=== PATIENT | female | born 1945 | race Caucasian/White ===

== ENCOUNTER → 2018-08-31 | Outpatient (CLI) | payer OTHER ==
[~2018-08-31] MED LIST: ACET-458 PO; ASPI-515 PO; ATEN50TA41 PO; BUTA1CAP57 PO; DILT240C9 PO; DIPH25CA61 PO; GABA600T7 PO; HYDR-3307 PO; LOSA100T14 PO; OMEP-110 PO; ONDA4TAB10 PO; PANT40TA5 PO; SERT100T32 PO; SIME125C PO; TYLENOL ARTHRITIS
== END | disposition home or self-care (01) ==
LOC: RAD 07:22
PROVIDERS: ATTEND Internal Medicine Gastroenterology
DX: K44.9 Diaphragmatic hernia without obstruction or gangrene (principal); K21.9 Gastro-esophageal reflux disease without esophagitis
CPT/HCPCS: 74247

== ENCOUNTER → 2018-10-27 | Outpatient (CLI) | payer MEDICARE ==
[~2018-10-27] MED LIST changes: +FERR-46 PO; +GABA300C10 PO
[2018-10-27 09:14] LABS: INTERNATIONAL NORMALIZED RATIO 0.99 (0.93-1.1); PROTHROMBIN TIME 10.4 Seconds (9.6-11.5)
== END | disposition home or self-care (01) ==
LOC: STAR 07:54
PROVIDERS: ATTEND Thoracic Surgery (Cardiothoracic Vascular Surgery)
DX: Z01.818 Encounter for other preprocedural examination (principal); K44.9 Diaphragmatic hernia without obstruction or gangrene
CPT/HCPCS: 36415; 85610; 85730; 93005

== ENCOUNTER 2018-11-03 06:48 | Observation (INO) | payer MEDICARE, OTHER ==
[~2018-11-03] VITALS: Ht 160 cm; Wt 83.8 kg
[~2018-11-03 06:48] MED LIST changes: +BUPIVACAINE/EPI 0.5% 1:200K ONE
[2018-11-03] MEDS ORDERED: LACTATED RINGERS 1,000 ML IV SCH (08:03)
[2018-11-03 08:04] VITALS: BP 176/101
[2018-11-03] MEDS ORDERED: LIDOCAINE-MPF 1%, 2ML INFIL ONE (08:30)
[2018-11-03] MEDS ORDERED: LISI40TA PO (08:40)
[2018-11-03] MEDS ORDERED: DIPH25CA61 PO (08:42)
[2018-11-03] MEDS ORDERED: ONDA4TAB13 SL (08:45)
[2018-11-03] MEDS ORDERED: ALBU18HF PO (08:45)
[2018-11-03] MEDS ORDERED: DEXAMETHASONE 4 MG/ML, 1ML ONE (09:05)
[2018-11-03] MEDS ORDERED: LIDOCAINE-MPF 2% ,5ML ONE (09:05)
[2018-11-03] MEDS ORDERED: ROCURONIUM 10MG/ML,5ML ONE (09:05)
[2018-11-03] MEDS ORDERED: PROPOFOL 10 MG/ML, 20ML ONE (09:05)
[2018-11-03] MEDS ORDERED: GLYCOPYRROLATE 0.2MG/1ML, 5ML ONE (09:05)
[2018-11-03] MEDS ORDERED: FENTANYL PF 250 MCG/5ML ONE (09:06)
[2018-11-03] MEDS ORDERED: MIDAZOLAM 1 MG/ML, 5ML ONE (09:06)
[2018-11-03] MEDS ORDERED: LIDOCAINE 2%, 6 ML JEL.PF.APP MM ONE (10:47)
[2018-11-03] MEDS ORDERED: ONDANSETRON 2MG/ML, 2ML IVPush PRN ×2 (11:00→11:30)
[2018-11-03] MEDS ORDERED: OXYcodone 5 MG/5 ML ORAL.SOL UDC PO PRN (11:00)
[2018-11-03] MEDS ORDERED: KETOROLAC 30 MG/1 ML IV PRN (11:00)
[2018-11-03] MEDS ORDERED: MIDAZOLAM 1 MG/ML, 2ML IV PRN (11:00)
[2018-11-03] MEDS ORDERED: LABETALOL 5MG/ML, 20ML IV PRN (11:00)
[2018-11-03] MEDS ORDERED: METOCLOPRAMIDE 5 MG/ML, 2ML IV PRN (11:00)
[2018-11-03] MEDS ORDERED: HYDROcodone/APAP 7.5-325MG/15ML UDC PO PRN (11:00)
[2018-11-03] MEDS ORDERED: MEPERIDINE/PF 25MG/0.5ML IVPush PRN (11:00)
[2018-11-03] MEDS: LACTATED RINGERS 1,000 ML IV SCH ×2 (11:21→20:49)
[2018-11-03] MEDS ORDERED: DIPHENHYDRAMINE 50 MG/ML, 1ML IV PRN (11:30)
[2018-11-03] MEDS ORDERED: PROMETHAZINE 12.5 MG SUPP PR PRN (11:30)
[2018-11-03] MEDS ORDERED: ACETAMINOPHEN 650 MG/20.3 ML UDC PO PRN (11:30)
[2018-11-03] MEDS ORDERED: LORazepam 2 MG/ML, 1ML IV PRN (11:30)
[2018-11-03] MEDS ORDERED: ENALAPRILAT 1.25 MG/ML, 2ML IV PRN (11:30)
[2018-11-03] MEDS ORDERED: PROMETHAZINE 25 MG/ML, 1ML IM PRN (11:30)
[2018-11-03] MEDS ORDERED: hydrALAzine 20 MG/ML, 1ML IV PRN (11:30)
[2018-11-03] MEDS ORDERED: FENTANYL PF 100 MCG/2ML ONE (11:40)
[2018-11-03] MEDS ORDERED: OXYcodone 5 MG/5 ML ORAL.SOL UDC ONE (11:40)
[2018-11-03] MEDS: FENTANYL PF 100 MCG/2ML IV PRN ×3 (11:42→12:01)
[2018-11-03] MEDS ORDERED: PROMETHAZINE 25 MG/ML, 1ML ONE (11:43)
[2018-11-03] MEDS: HYDROmorphone 1 MG/ML, 1ML INJ IV PRN ×2 (12:03→12:14)
[2018-11-03] MEDS ORDERED: HYDROmorphone 2 MG/ML, 1ML ONE (12:07)
[2018-11-03] MEDS ORDERED: hydrALAzine 20 MG/ML, 1ML ONE (12:30)
[2018-11-03 13:05] VITALS: BP 111/69
[2018-11-03] MEDS ORDERED: ALBUTEROL SULFATE 2.5 MG/3 ML NPPB PRN (13:30)
[2018-11-03] MEDS: FAMOTIDINE 20 MG/2 ML IV SCH ×2 (13:32→23:56)
[2018-11-03] MEDS: morphine SULFATE 10 MG/ML, 1ML IV PRN ×2 (13:32→15:19)
[2018-11-03] MEDS: GABAPENTIN 300 MG CAPSULE PO SCH ×2 (16:07→20:47)
[2018-11-03] MEDS: HYDROcodone/APAP 7.5-325MG/15ML UDC PO PRN (18:40)
[2018-11-03 20:16] VITALS: BP 134/84
[2018-11-04] MEDS: HYDROcodone/APAP 7.5-325MG/15ML UDC PO PRN ×2 (00:01→04:27)
[2018-11-04 00:49] VITALS: BP 147/87
[2018-11-04 03:34] VITALS: BP 164/90
[2018-11-04] MEDS: morphine SULFATE 10 MG/ML, 1ML IV PRN (04:27)
[2018-11-04] MEDS: LACTATED RINGERS 1,000 ML IV SCH (05:51)
[2018-11-04 07:45] VITALS: BP 143/86
[2018-11-04] MEDS ORDERED: ENOXAPARIN 40 MG/0.4 ML SQ SCH (09:00)
[2018-11-04] MEDS ORDERED: LISINOPRIL 40 MG TABLET PO SCH (09:00)
[2018-11-04] MEDS ORDERED: DILTIAZEM 240 MG CAP.ER.24H PO SCH (09:00)
[2018-11-04] MEDS ORDERED: ATENOLOL 50 MG TABLET PO SCH (09:00)
[2018-11-04] MEDS: GABAPENTIN 300 MG CAPSULE PO SCH (09:00)
== END 2018-11-04 10:20 | disposition home or self-care (01) ==
LOC: OR 06:48 → ORIP 11:21 → 4NOR 13:03 → DCLOUNGE 11-04 10:02
PROVIDERS: ADMIT Thoracic Surgery (Cardiothoracic Vascular Surgery); ATTEND Thoracic Surgery (Cardiothoracic Vascular Surgery)
DX: K44.0 Diaphragmatic hernia with obstruction, without gangrene (principal); K21.9 Gastro-esophageal reflux disease without esophagitis; R14.0 Abdominal distension (gaseous); J44.9 Chronic obstructive pulmonary disease, unspecified; I10 Essential (primary) hypertension; E66.9 Obesity, unspecified; D50.9 Iron deficiency anemia, unspecified; M85.80 Other specified disorders of bone density and structure, unspecified site; Z79.899 Other long term (current) drug therapy
CPT/HCPCS: 43282; 96374; 96375; 96376; G0378; J0360; J1100; J1170; J2250; J2270; J2704; J3010; J3490; J7120; Q4116

== ENCOUNTER 2019-05-05 16:08 | Inpatient (IN) | payer MEDICARE ==
[~2019-05-05] VITALS: Ht 160 cm; Wt 74.7 kg
[~2019-05-05 16:08] MED LIST changes: +ALBU18HF PO; -BUPIVACAINE/EPI 0.5% 1:200K ONE; -HYDR-3307 PO; +HYDR-36 PO; +LISI40TA PO; +ONDA4TAB13 SL
--- NOTE | 2019-05-05 16:17 | NUR ---
BIB EMS FOR ABDOMINAL PAIN AND DIARRHEA FOR 2 WEEKS. PT STATES ABDOMINAL PAIN STARTED TODAY, FEELS LIKE A MUSCLE IS PULLED. ACTIVE BOWEL SOUNDS, NO DISTENTION, LOWER AB PAIN TO PALPITATION. NAUSEA PRESENT. HX OF ABDOMINAL SURGERY FOR TWISTED STOMACH. HX OF AFIB. PT STATES SHE HAS DIARRHEA FREQUENTLY. DENIES ABX USE.
[2019-05-05] MEDS ORDERED: APIX5TAB PO (16:22)
[2019-05-05] MEDS ORDERED: HYDROmorphone 1 MG/ML, 1ML VIAL ONE ×2 (16:25→17:03)
[2019-05-05] MEDS ORDERED: ONDANSETRON 2MG/ML, 2ML ONE ×2 (16:25→20:41)
[2019-05-05] MEDS: HYDROmorphone 2 MG/ML, 1ML IVPush PRN ×2 (16:27→17:05)
[2019-05-05] MEDS ORDERED: SODIUM CHLORIDE 0.9% 1,000ML IVBOLUS ONE (16:30)
[2019-05-05] MEDS ORDERED: SODIUM CHLORIDE FLUSH 10ML SYR IVF ONE (16:30)
[2019-05-05] MEDS ORDERED: ONDANSETRON 2MG/ML, 2ML IVPush ONE (16:30)
--- NOTE | 2019-05-05 16:30 | NUR ---
MEDICATED FOR PAIN PER ORDERS. LAB AT BEDSIDE.
[2019-05-05 16:49] LABS: BASOPHILS # (AUTO) 0.01 x10^3/uL (0-0.1); BASOPHILS % (AUTO) 0 % (0-1); EOSINOPHILS # (AUTO) 0.18 x10^3/uL (0-0.4); EOSINOPHILS % (AUTO) 1 % (1-7); LYMPHOCYTES # (AUTO) 1.28 x10^3/uL (1-3.4); LYMPHOCYTES % (AUTO) 10 % (22-44); MD NO; MEAN CORPUSCULAR HEMOGLOBIN 34.2 pg (27.0-34.8); MEAN CORPUSCULAR HGB CONC 33.5 g/dL (32.4-35.8); MEAN CORPUSCULAR VOLUME 102.2 fL (80-100); MEAN PLATELET VOLUME 8.4 fL (7.4-10.4); MONOCYTES # (AUTO) 0.73 x10^3/uL (0.2-0.8); MONOCYTES % (AUTO) 6 % (2-9); NEUTROPHILS # (AUTO) 11.24 x10^3/uL (1.8-6.8); NEUTROPHILS % (AUTO) 84 % (42-75); PLATELET COUNT 244 x10^3/uL (130-400); RED CELL DISTRIBUTION WIDTH 14.4 % (9.6-15.2)
--- NOTE | 2019-05-05 16:56 | NUR ---
UA SAMPLE OBTAINED. SENT TO LAB. PT STILL HAS CO OF PAIN
[2019-05-05 16:57] LABS: ALANINE AMINOTRANSFERASE 133 U/L (12-78); ALBUMIN 3.6 g/dL (3.4-5.0); ANION GAP 6 mmol/L (5-15); CALCIUM 9.3 mg/dL (8.5-10.1); CHLORIDE 113 mmol/L (98-107)
[2019-05-05 17:00] LABS: ALKALINE PHOSPHATASE 274 U/L (45-117); BILIRUBIN,TOTAL 0.9 mg/dL (0.2-1.0)
[2019-05-05 17:04] LABS: INTERNATIONAL NORMALIZED RATIO 1.03 (0.93-1.1); PROTHROMBIN TIME 10.8 Seconds (9.6-11.5)
--- NOTE | 2019-05-05 17:05 | NUR ---
MEDICATED FOR PAIN. PT OFF TO CT
[2019-05-05 17:14] LABS: MICROSCOPIC NOT IND
[2019-05-05 17:20] LABS: CULTURE INDICATED? NO
[2019-05-05] MEDS ORDERED: OMNIPAQUE 350 MG/ML, 100ML BOTTLE ONE (17:28)
--- NOTE | 2019-05-05 17:35 | NUR ---
DISCUSSED POC Ravi TAYLOR. WILL PLACE NG TUBE. TO BE ADMITTED.
--- NOTE | 2019-05-05 18:24 | NUR ---
PT DAUGHTER GREG, [phone], CALLED FOR INFO.
--- NOTE | 2019-05-05 18:24 | NUR ---
NG TUBE PLACE. PT TOLERATED PROCEDURE. AUSCULATED, CHECKED BY CXR. PT STATES SHE IS FEELING SLIGHTLY BETTER. MD AT BEDSIDE.
--- NOTE | 2019-05-05 19:14 | NUR ---
REPORT TO OR. PT RTG. CONSENT SIGNED. PT HAS NO FURTHER QUESTIONS.
[2019-05-05] MEDS ORDERED: FENTANYL PF 250 MCG/5ML ONE (19:53)
[2019-05-05] MEDS ORDERED: MIDAZOLAM 1 MG/ML, 2ML ONE (19:53)
[2019-05-05] MEDS ORDERED: PHENYLEPHRINE 10 MG/ML ONE (19:57)
[2019-05-05] MEDS ORDERED: LIDODERM 5% PATCH TD PRN (20:00)
[2019-05-05] MEDS ORDERED: PHARMACY MAY ADJ FOR RENAL FX MC PRN (20:00)
[2019-05-05] MEDS ORDERED: BISACODYL 10 MG SUPP PR PRN (20:00)
[2019-05-05] MEDS ORDERED: SODIUM CHLORIDE 0.9% 1,000 ML IV SCH (20:00)
[2019-05-05] MEDS ORDERED: ENALAPRILAT 1.25 MG/ML, 2ML IVPush PRN (20:00)
[2019-05-05] MEDS ORDERED: AMPICILLIN/SULBACTAM 3 GM in SODIUM CHLORIDE 0.9% 100 ML IV SCH (20:30)
[2019-05-05] MEDS ORDERED: METRONIDAZOLE PMX 500MG/100ML 100 ML IV SCH (20:30)
[2019-05-05] MEDS ORDERED: EPHEDRINE 50 MG/ML, 1ML ONE ×2 (20:41)
[2019-05-05] MEDS ORDERED: SUCCINYLCHOLINE 20 MG/ML, 10ML ONE (20:41)
[2019-05-05] MEDS ORDERED: NEOSTIGMINE 1 MG/ML, 10ML ONE (20:41)
[2019-05-05] MEDS ORDERED: DEXAMETHASONE 4 MG/ML, 1ML ONE (20:41)
[2019-05-05] MEDS ORDERED: SUGAMMADEX 200 MG/2 ML IVPush ONE (20:41)
[2019-05-05] MEDS ORDERED: CEFAZOLIN 1,000 MG ONE (20:41)
[2019-05-05] MEDS ORDERED: ROCURONIUM 10MG/ML,5ML ONE (20:41)
[2019-05-05] MEDS ORDERED: PROPOFOL 10 MG/ML, 20ML ONE (20:41)
[2019-05-05] MEDS ORDERED: GLYCOPYRROLATE 0.2MG/1ML, 5ML ONE (20:41)
[2019-05-05] MEDS ORDERED: PROPOFOL 50 ML ONE (20:44)
[2019-05-05] MEDS ORDERED: PROPOFOL 100 ML IV ONE (22:43)
[2019-05-05] MEDS ORDERED: NOREPINEPHRINE 4 MG in SODIUM CHLORIDE 0.9% 246 ML IV PRN ×2 (22:53→23:30)
[2019-05-05] MEDS ORDERED: PROPOFOL 100 ML IV PRN (22:53)
[2019-05-05] MEDS ORDERED: VASOPRESSIN 100 UNIT in SODIUM CHLORIDE 0.9% 495 ML IV PRN ×2 (22:53→23:30)
[2019-05-05] MEDS ORDERED: SODIUM BICARB 8.4%, 50ML SYRINGE IVPush STA (22:56)
[2019-05-05] MEDS: ALBUTEROL/IPRATROPIUM 2.5MG/0.5MG, 3 ML INLINE SCH (23:00)
[2019-05-05] MEDS ORDERED: PHARMACY MAY ADJ FOR RENAL FX MC SCH (23:00)
[2019-05-05] MEDS ORDERED: FENTANYL PF 100 MCG/2ML IVPush PRN (23:00)
[2019-05-05] MEDS ORDERED: LIDOCAINE-MPF 1%, 2ML ENDO PRN (23:00)
[2019-05-05] MEDS ORDERED: SODIUM BICARBONATE 1 MEQ/ML, 50ML VIAL ONE (23:28)
[2019-05-05] MEDS: PIPERACILLIN/TAZO/PMX 3.375GM 50 ML IV SCH (23:37)
[2019-05-06 00:49] LABS: INTERNATIONAL NORMALIZED RATIO 1.49 (0.93-1.1); PROTHROMBIN TIME 15.4 Seconds (9.6-11.5)
[2019-05-06 01:19] LABS: TROPONIN I < 0.015 ng/mL (0.000-0.045)
[2019-05-06] MEDS: ALBUTEROL/IPRATROPIUM 2.5MG/0.5MG, 3 ML INLINE SCH ×2 (02:40→06:36)
[2019-05-06 04:30] LABS: BASOPHILS # (AUTO) 0.01 x10^3/uL (0-0.1); BASOPHILS % (AUTO) 0 % (0-1); EOSINOPHILS % (AUTO) 0 % (1-7); LYMPHOCYTES # (AUTO) 0.71 x10^3/uL (1-3.4); LYMPHOCYTES % (AUTO) 6 % (22-44); MD NO; MEAN CORPUSCULAR HGB CONC 33.2 g/dL (32.4-35.8); MEAN CORPUSCULAR VOLUME 102.4 fL (80-100); MEAN PLATELET VOLUME 8.3 fL (7.4-10.4); MONOCYTES # (AUTO) 0.43 x10^3/uL (0.2-0.8); MONOCYTES % (AUTO) 3 % (2-9); NEUTROPHILS # (AUTO) 11.61 x10^3/uL (1.8-6.8); NEUTROPHILS % (AUTO) 91 % (42-75); PLATELET COUNT 237 x10^3/uL (130-400); RED CELL DISTRIBUTION WIDTH 14.3 % (9.6-15.2)
[2019-05-06 04:44] LABS: ALANINE AMINOTRANSFERASE 183 U/L (12-78); ALBUMIN 2.6 g/dL (3.4-5.0); ANION GAP 7 mmol/L (5-15); CALCIUM 8.2 mg/dL (8.5-10.1); CHLORIDE 113 mmol/L (98-107); CREATININE 1.22 mg/dL (0.55-1.02)
[2019-05-06 04:49] LABS: ALKALINE PHOSPHATASE 229 U/L (45-117); TOTAL PROTEIN 6.2 g/dL (6.4-8.2); TROPONIN I < 0.015 ng/mL (0.000-0.045)
[2019-05-06] MEDS: PIPERACILLIN/TAZO/PMX 3.375GM 50 ML IV SCH (06:02)
[2019-05-06] MEDS ORDERED: MAGNESIUM SULFATE PMX 4GM/100M 100 ML IVPB ONE (07:30)
[2019-05-06] MEDS: PANTOPRAZOLE 40 MG IV IV SCH (08:21)
[2019-05-06] MEDS ORDERED: ALBUTEROL/IPRATROPIUM 2.5MG/0.5MG, 3 ML NPPB SCH (08:30)
[2019-05-06] MEDS ORDERED: ALBUTEROL SULFATE 2.5 MG/3 ML NPPB PRN (08:30)
[2019-05-06] MEDS: ALBUTEROL/IPRATROPIUM 2.5MG/0.5MG, 3 ML NPPB SCH ×5 (09:00→19:22)
[2019-05-06] MEDS: ATENOLOL 50 MG TABLET PO SCH (09:10)
[2019-05-06] MEDS: SERTRALINE 100MG TABLET PO SCH (09:10)
[2019-05-06] MEDS: DILTIAZEM 240 MG CAP.ER.24H PO SCH (09:11)
[2019-05-06] MEDS: KETOROLAC 30 MG/1 ML IVPush SCH ×3 (11:22→23:17)
[2019-05-06] MEDS: SODIUM CHLORIDE 0.9% 1,000 ML IV SCH (11:26)
[2019-05-06 14:03] VITALS: BP 100/68
[2019-05-06] MEDS: GABAPENTIN 300 MG CAPSULE PO SCH ×2 (15:11→20:23)
[2019-05-06 19:49] VITALS: BP 130/87
[2019-05-06] MEDS: APIXABAN 5 MG TABLET PO SCH (20:23)
[2019-05-06] MEDS: TEMAZEPAM 15 MG CAPSULE PO PRN (20:23)
[2019-05-06] MEDS: HYDROmorphone 2 MG/ML, 1ML IVPush PRN ×2 (20:25→23:30)
[2019-05-06 23:23] VITALS: BP 123/77
[2019-05-07] MEDS: SODIUM CHLORIDE 0.9% 1,000 ML IV SCH (00:52)
[2019-05-07] MEDS: HYDROmorphone 2 MG/ML, 1ML IVPush PRN ×4 (02:46→12:19)
[2019-05-07 03:08] VITALS: BP 122/63
[2019-05-07] MEDS: KETOROLAC 30 MG/1 ML IVPush SCH ×4 (04:42→23:53)
[2019-05-07 05:47] LABS: ALBUMIN 2.2 g/dL (3.4-5.0); ANION GAP 4 mmol/L (5-15); CALCIUM 7.9 mg/dL (8.5-10.1); CHLORIDE 117 mmol/L (98-107)
[2019-05-07 05:51] LABS: ALANINE AMINOTRANSFERASE 95 U/L (12-78); ALKALINE PHOSPHATASE 142 U/L (45-117); BILIRUBIN,TOTAL 0.5 mg/dL (0.2-1.0); CREATININE 0.83 mg/dL (0.55-1.02); TOTAL PROTEIN 5.8 g/dL (6.4-8.2)
[2019-05-07 06:30] LABS: BASOPHILS % (AUTO) 0 % (0-1); EOSINOPHILS # (AUTO) 0.02 x10^3/uL (0-0.4); EOSINOPHILS % (AUTO) 0 % (1-7); LYMPHOCYTES # (AUTO) 1.14 x10^3/uL (1-3.4); LYMPHOCYTES % (AUTO) 8 % (22-44); MD NO; MEAN CORPUSCULAR HGB CONC 32.8 g/dL (32.4-35.8); MEAN CORPUSCULAR VOLUME 103.6 fL (80-100); MEAN PLATELET VOLUME 8.1 fL (7.4-10.4); MONOCYTES # (AUTO) 0.71 x10^3/uL (0.2-0.8); MONOCYTES % (AUTO) 5 % (2-9); NEUTROPHILS % (AUTO) 86 % (42-75); PLATELET COUNT 205 x10^3/uL (130-400); RED BLOOD COUNT 3.31 x10^6/uL (3.82-5.3); RED CELL DISTRIBUTION WIDTH 14.7 % (9.6-15.2)
[2019-05-07 06:54] VITALS: BP 109/74
[2019-05-07] MEDS: ALBUTEROL/IPRATROPIUM 2.5MG/0.5MG, 3 ML NPPB SCH (07:20)
[2019-05-07] MEDS: GABAPENTIN 300 MG CAPSULE PO SCH ×3 (09:00→20:03)
[2019-05-07] MEDS: PANTOPRAZOLE 40 MG IV IV SCH (09:04)
[2019-05-07] MEDS: DILTIAZEM 240 MG CAP.ER.24H PO SCH (09:05)
[2019-05-07] MEDS: ATENOLOL 50 MG TABLET PO SCH (09:06)
[2019-05-07] MEDS: SERTRALINE 100MG TABLET PO SCH (09:06)
[2019-05-07] MEDS: APIXABAN 5 MG TABLET PO SCH ×2 (09:07→20:03)
[2019-05-07 12:38] VITALS: BP 90/61
[2019-05-07 16:39] VITALS: BP 108/74
[2019-05-07] MEDS ORDERED: SODIUM CHLORIDE 0.9%, 500ML IVBOLUS ONE (17:00)
[2019-05-07 19:25] VITALS: BP 102/71
[2019-05-07] MEDS ORDERED: SODIUM CHLORIDE 0.9% 1,000 ML IV SCH (20:00)
[2019-05-07] MEDS: OXYcodone/APAP 5/325MG TABLET PO PRN (20:02)
[2019-05-07] MEDS: TEMAZEPAM 15 MG CAPSULE PO PRN (20:02)
[2019-05-08 01:42] VITALS: BP 134/82
[2019-05-08] MEDS ORDERED: FUROSEMIDE 20 MG/2 ML IV ONE (02:15)
[2019-05-08] MEDS: OXYcodone/APAP 5/325MG TABLET PO PRN ×3 (02:34→14:51)
[2019-05-08 03:45] LABS: CLOSTRIDIUM DIFFICILE ANTIGEN NEGATIVE; CLOSTRIDIUM DIFFICILE TOXIN NEGATIVE (Negative)
[2019-05-08 05:02] LABS: BASOPHILS # (AUTO) 0.02 x10^3/uL (0-0.1); BASOPHILS % (AUTO) 0 % (0-1); EOSINOPHILS # (AUTO) 0.16 x10^3/uL (0-0.4); EOSINOPHILS % (AUTO) 1 % (1-7); LYMPHOCYTES # (AUTO) 0.97 x10^3/uL (1-3.4); LYMPHOCYTES % (AUTO) 8 % (22-44); MD NO; MEAN CORPUSCULAR HEMOGLOBIN 34.2 pg (27.0-34.8); MEAN CORPUSCULAR HGB CONC 33.3 g/dL (32.4-35.8); MEAN CORPUSCULAR VOLUME 102.8 fL (80-100); MONOCYTES # (AUTO) 0.74 x10^3/uL (0.2-0.8); MONOCYTES % (AUTO) 6 % (2-9); NEUTROPHILS # (AUTO) 11.12 x10^3/uL (1.8-6.8); NEUTROPHILS % (AUTO) 86 % (42-75); PLATELET COUNT 207 x10^3/uL (130-400); RED BLOOD COUNT 3.08 x10^6/uL (3.82-5.3); RED CELL DISTRIBUTION WIDTH 14.8 % (9.6-15.2)
[2019-05-08 05:14] LABS: ANION GAP 3 mmol/L (5-15); CHLORIDE 115 mmol/L (98-107)
[2019-05-08] MEDS: KETOROLAC 30 MG/1 ML IVPush SCH ×3 (06:23→20:06)
[2019-05-08 07:36] VITALS: BP 110/73
[2019-05-08] MEDS ORDERED: POTASSIUM CHLORIDE 20 MEQ TAB.ER.PRT PO SCH (08:00)
[2019-05-08] MEDS: ATENOLOL 50 MG TABLET PO SCH (08:04)
[2019-05-08] MEDS: DILTIAZEM 240 MG CAP.ER.24H PO SCH (08:04)
[2019-05-08] MEDS: GABAPENTIN 300 MG CAPSULE PO SCH ×3 (08:04→20:05)
[2019-05-08] MEDS: APIXABAN 5 MG TABLET PO SCH ×2 (08:05→20:05)
[2019-05-08] MEDS: SERTRALINE 100MG TABLET PO SCH (08:05)
[2019-05-08] MEDS: PANTOPRAZOLE 40 MG IV IV SCH (08:05)
[2019-05-08] MEDS ORDERED: FUROSEMIDE 40 MG TABLET PO SCH (09:00)
[2019-05-08 13:43] VITALS: BP 130/84
[2019-05-08 18:00] VITALS: BP 94/62
[2019-05-08] MEDS: ONDANSETRON 2MG/ML, 2ML IVPush PRN (18:04)
[2019-05-08] MEDS: SODIUM CHLORIDE FLUSH 10ML SYR IVF SCH (18:05)
[2019-05-08 18:56] VITALS: BP 89/57
[2019-05-08] MEDS: TEMAZEPAM 15 MG CAPSULE PO PRN (19:32)
[2019-05-08] MEDS ORDERED: LOPERAMIDE 2 MG CAPSULE PO PRN (23:30)
[2019-05-08] MEDS ORDERED: LOPERAMIDE 2 MG CAPSULE ONE (23:30)
[2019-05-09] MEDS: KETOROLAC 30 MG/1 ML IVPush SCH (02:26)
[2019-05-09 02:33] VITALS: BP 117/81
[2019-05-09] MEDS ORDERED: LOPERAMIDE 2 MG CAPSULE PO PRN (05:30)
[2019-05-09 06:05] LABS: ALBUMIN 2.2 g/dL (3.4-5.0); ANION GAP 4 mmol/L (5-15); CALCIUM 8.3 mg/dL (8.5-10.1); CHLORIDE 115 mmol/L (98-107)
[2019-05-09 06:08] LABS: ALANINE AMINOTRANSFERASE 55 U/L (12-78); ALKALINE PHOSPHATASE 123 U/L (45-117); BILIRUBIN,TOTAL 0.9 mg/dL (0.2-1.0); CREATININE 1.12 mg/dL (0.55-1.02)
[2019-05-09 06:37] LABS: BASOPHILS # (AUTO) 0.03 x10^3/uL (0-0.1); BASOPHILS % (AUTO) 0 % (0-1); EOSINOPHILS # (AUTO) 0.25 x10^3/uL (0-0.4); EOSINOPHILS % (AUTO) 2 % (1-7); LYMPHOCYTES # (AUTO) 0.82 x10^3/uL (1-3.4); LYMPHOCYTES % (AUTO) 8 % (22-44); MD NO; MEAN CORPUSCULAR HEMOGLOBIN 34.2 pg (27.0-34.8); MEAN CORPUSCULAR HGB CONC 33.2 g/dL (32.4-35.8); MEAN CORPUSCULAR VOLUME 103.1 fL (80-100); MEAN PLATELET VOLUME 9.1 fL (7.4-10.4); MONOCYTES # (AUTO) 0.68 x10^3/uL (0.2-0.8); MONOCYTES % (AUTO) 7 % (2-9); NEUTROPHILS # (AUTO) 8.45 x10^3/uL (1.8-6.8); NEUTROPHILS % (AUTO) 83 % (42-75); PLATELET COUNT 223 x10^3/uL (130-400); RED BLOOD COUNT 2.96 x10^6/uL (3.82-5.3); RED CELL DISTRIBUTION WIDTH 14.2 % (9.6-15.2)
[2019-05-09 07:15] VITALS: BP 117/83
[2019-05-09] MEDS: SODIUM CHLORIDE FLUSH 10ML SYR IVF SCH ×3 (09:00→20:32)
[2019-05-09] MEDS: GABAPENTIN 300 MG CAPSULE PO SCH ×3 (09:00→20:11)
[2019-05-09] MEDS: PANTOPRAZOLE 40 MG IV IV SCH (09:32)
[2019-05-09] MEDS: DILTIAZEM 240 MG CAP.ER.24H PO SCH (09:33)
[2019-05-09] MEDS: ATENOLOL 50 MG TABLET PO SCH (09:34)
[2019-05-09] MEDS: SERTRALINE 100MG TABLET PO SCH (09:35)
[2019-05-09] MEDS: APIXABAN 5 MG TABLET PO SCH ×2 (09:35→20:12)
[2019-05-09] MEDS: PANCRELIPASE 24,000 CAPSULE.DR PO SCH ×2 (11:17→16:12)
[2019-05-09 13:24] VITALS: BP 132/87
[2019-05-09] MEDS: ONDANSETRON 2MG/ML, 2ML IVPush PRN (15:29)
[2019-05-09] MEDS: OXYcodone/APAP 5/325MG TABLET PO PRN (20:12)
[2019-05-09 20:14] VITALS: BP 136/84
[2019-05-09] MEDS: TEMAZEPAM 15 MG CAPSULE PO PRN (20:21)
[2019-05-10] MEDS: OXYcodone/APAP 5/325MG TABLET PO PRN ×4 (00:37→22:20)
[2019-05-10] MEDS ORDERED: ONDANSETRON 4 MG TABLET ONE (00:49)
[2019-05-10] MEDS: DIPHENOXYLATE/ATROPINE TABLET PO PRN ×3 (00:51→19:49)
[2019-05-10] MEDS: ONDANSETRON 4 MG TABLET PO PRN ×3 (00:55→22:30)
[2019-05-10 02:24] VITALS: BP 95/56
[2019-05-10 06:26] LABS: BASOPHILS # (AUTO) 0.04 x10^3/uL (0-0.1); BASOPHILS % (AUTO) 0 % (0-1); EOSINOPHILS # (AUTO) 0.29 x10^3/uL (0-0.4); EOSINOPHILS % (AUTO) 3 % (1-7); LYMPHOCYTES # (AUTO) 1.16 x10^3/uL (1-3.4); LYMPHOCYTES % (AUTO) 11 % (22-44); MD NO; MEAN CORPUSCULAR HEMOGLOBIN 33.9 pg (27.0-34.8); MEAN CORPUSCULAR HGB CONC 33.7 g/dL (32.4-35.8); MEAN CORPUSCULAR VOLUME 100.6 fL (80-100); MEAN PLATELET VOLUME 8.2 fL (7.4-10.4); MONOCYTES # (AUTO) 0.72 x10^3/uL (0.2-0.8); MONOCYTES % (AUTO) 7 % (2-9); NEUTROPHILS # (AUTO) 8.83 x10^3/uL (1.8-6.8); NEUTROPHILS % (AUTO) 80 % (42-75); PLATELET COUNT 259 x10^3/uL (130-400); RED BLOOD COUNT 3.03 x10^6/uL (3.82-5.3); RED CELL DISTRIBUTION WIDTH 14.4 % (9.6-15.2)
[2019-05-10] MEDS: PANCRELIPASE 24,000 CAPSULE.DR PO SCH ×3 (06:32→16:21)
[2019-05-10 08:09] VITALS: BP 104/75
[2019-05-10] MEDS: ATENOLOL 50 MG TABLET PO SCH (09:00)
[2019-05-10] MEDS: SODIUM CHLORIDE FLUSH 10ML SYR IVF SCH ×2 (09:00→19:49)
[2019-05-10] MEDS: TRIAMCINOLONE CRM 0.1%, 15GM TP SCH ×3 (09:30→19:49)
[2019-05-10] MEDS: DILTIAZEM 240 MG CAP.ER.24H PO SCH (10:37)
[2019-05-10] MEDS: PANTOPRAZOLE 40 MG IV IV SCH (10:37)
[2019-05-10] MEDS: SERTRALINE 100MG TABLET PO SCH (10:37)
[2019-05-10] MEDS: APIXABAN 5 MG TABLET PO SCH ×2 (10:38→19:49)
[2019-05-10] MEDS: GABAPENTIN 300 MG CAPSULE PO SCH ×2 (10:38→16:00)
[2019-05-10 13:08] VITALS: BP 135/90
[2019-05-10 19:42] VITALS: BP 113/75
[2019-05-10] MEDS: TEMAZEPAM 15 MG CAPSULE PO PRN (22:19)
[2019-05-11 02:11] VITALS: BP 138/81
[2019-05-11 05:27] LABS: MEAN CORPUSCULAR HEMOGLOBIN 33.5 pg (27.0-34.8); MEAN CORPUSCULAR HGB CONC 33.3 g/dL (32.4-35.8); MEAN CORPUSCULAR VOLUME 100.6 fL (80-100); MEAN PLATELET VOLUME 8.2 fL (7.4-10.4); PLATELET COUNT 284 x10^3/uL (130-400); RED BLOOD COUNT 3.04 x10^6/uL (3.82-5.3)
[2019-05-11] MEDS: ONDANSETRON 4 MG TABLET PO PRN ×2 (05:33→10:57)
[2019-05-11] MEDS: PANTOPROZOLE 40MG TABLET PO SCH (05:33)
[2019-05-11] MEDS: OXYcodone/APAP 5/325MG TABLET PO PRN ×3 (05:34→18:46)
[2019-05-11 06:22] LABS: BASOPHILS # (AUTO) 0.06 x10^3/uL (0-0.1); BASOPHILS % (AUTO) 1 % (0-1); EOSINOPHILS # (AUTO) 0.38 x10^3/uL (0-0.4); EOSINOPHILS % (AUTO) 3 % (1-7); LYMPHOCYTES # (AUTO) 1.15 x10^3/uL (1-3.4); LYMPHOCYTES % (AUTO) 10 % (22-44); MD SCAN; MONOCYTES # (AUTO) 0.77 x10^3/uL (0.2-0.8); MONOCYTES % (AUTO) 7 % (2-9); NEUTROPHILS # (AUTO) 8.84 x10^3/uL (1.8-6.8); NEUTROPHILS % (AUTO) 79 % (42-75)
[2019-05-11] MEDS: PANCRELIPASE 24,000 CAPSULE.DR PO SCH ×3 (06:35→16:04)
[2019-05-11 07:03] LABS: ANION GAP 8 mmol/L (5-15); CALCIUM 8.4 mg/dL (8.5-10.1); CHLORIDE 111 mmol/L (98-107); CREATININE 0.61 mg/dL (0.55-1.02)
[2019-05-11 08:34] VITALS: BP 137/85
[2019-05-11] MEDS: DILTIAZEM 240 MG CAP.ER.24H PO SCH (08:36)
[2019-05-11] MEDS: APIXABAN 5 MG TABLET PO SCH ×2 (08:36→20:51)
[2019-05-11] MEDS: ATENOLOL 50 MG TABLET PO SCH (08:36)
[2019-05-11] MEDS: SERTRALINE 100MG TABLET PO SCH (08:36)
[2019-05-11] MEDS: DIPHENOXYLATE/ATROPINE TABLET PO PRN ×3 (08:36→23:34)
[2019-05-11] MEDS: SODIUM CHLORIDE FLUSH 10ML SYR IVF SCH ×2 (08:37→20:51)
[2019-05-11] MEDS: TRIAMCINOLONE CRM 0.1%, 15GM TP SCH ×3 (08:38→20:51)
[2019-05-11 14:03] VITALS: BP 138/93
[2019-05-11] MEDS: ACETAMINOPHEN 325 MG TABLET PO PRN ×2 (16:04→23:31)
[2019-05-11 19:43] VITALS: BP 118/76
[2019-05-11] MEDS: TEMAZEPAM 15 MG CAPSULE PO PRN (20:51)
[2019-05-11] MEDS: ONDANSETRON 2MG/ML, 2ML IVPush PRN (23:34)
[2019-05-12] MEDS: OXYcodone/APAP 5/325MG TABLET PO PRN ×2 (02:23→09:39)
[2019-05-12 02:30] VITALS: BP 144/88
[2019-05-12 06:07] LABS: BASOPHILS # (AUTO) 0.06 x10^3/uL (0-0.1); BASOPHILS % (AUTO) 1 % (0-1); EOSINOPHILS # (AUTO) 0.38 x10^3/uL (0-0.4); EOSINOPHILS % (AUTO) 4 % (1-7); LYMPHOCYTES # (AUTO) 1.31 x10^3/uL (1-3.4); LYMPHOCYTES % (AUTO) 15 % (22-44); MD NO; MEAN CORPUSCULAR HEMOGLOBIN 33.9 pg (27.0-34.8); MEAN CORPUSCULAR HGB CONC 32.8 g/dL (32.4-35.8); MEAN CORPUSCULAR VOLUME 103.4 fL (80-100); MEAN PLATELET VOLUME 8.7 fL (7.4-10.4); MONOCYTES # (AUTO) 0.66 x10^3/uL (0.2-0.8); MONOCYTES % (AUTO) 7 % (2-9); NEUTROPHILS # (AUTO) 6.56 x10^3/uL (1.8-6.8); NEUTROPHILS % (AUTO) 73 % (42-75); PLATELET COUNT 300 x10^3/uL (130-400); RED BLOOD COUNT 3.08 x10^6/uL (3.82-5.3); RED CELL DISTRIBUTION WIDTH 14.1 % (9.6-15.2)
[2019-05-12] MEDS: PANTOPROZOLE 40MG TABLET PO SCH (06:50)
[2019-05-12] MEDS: PANCRELIPASE 24,000 CAPSULE.DR PO SCH ×2 (06:50→09:38)
[2019-05-12] MEDS ORDERED: OXYcodone/APAP 5/325MG PO (07:55)
[2019-05-12] MEDS ORDERED: LIPA1CAP61 PO (07:55)
[2019-05-12] MEDS ORDERED: TRIA15CR61 TP (07:55)
[2019-05-12] MEDS ORDERED: DIPH1TAB6 PO (07:55)
[2019-05-12] MEDS ORDERED: ATEN25TA PO (07:55)
[2019-05-12 08:38] VITALS: BP 142/92
[2019-05-12] MEDS ORDERED: ATENOLOL 25 MG TABLET PO SCH (09:00)
[2019-05-12 09:36] VITALS: BP 149/87
[2019-05-12] MEDS: APIXABAN 5 MG TABLET PO SCH (09:38)
[2019-05-12] MEDS: DILTIAZEM 240 MG CAP.ER.24H PO SCH (09:38)
[2019-05-12] MEDS: SODIUM CHLORIDE FLUSH 10ML SYR IVF SCH (09:39)
[2019-05-12] MEDS: SERTRALINE 100MG TABLET PO SCH (09:39)
[2019-05-12] MEDS: ONDANSETRON 4 MG TABLET PO PRN (09:39)
[2019-05-12] MEDS: TRIAMCINOLONE CRM 0.1%, 15GM TP SCH (09:40)
[2019-05-12] MEDS ORDERED: OXYC-302 PO (09:51)
[2019-05-12] MEDS ORDERED: DIPH1TAB PO (09:53)
== END 2019-05-12 11:04 | disposition home health service (06) | DRG 853 ==
LOC: ED 16:35 → EDIP 18:18 → 4NE 19:38 → ICU 21:29 → 4NE 05-06 13:55 → DCLOUNGE 05-12 10:23
PROVIDERS: ADMIT Internal Medicine; ATTEND Hospitalist
PROC: 03HY32Z Insertion of Monitoring Device into Upper Artery, Percutaneous Approach (ICD-10-PCS; 2019-05-05)
PROC: 0T9B70Z Drainage of Bladder with Drainage Device, Via Natural or Artificial Opening (ICD-10-PCS; 2019-05-05)
PROC: 02HV33Z Insertion of Infusion Device into Superior Vena Cava, Percutaneous Approach (ICD-10-PCS; 2019-05-05)
PROC: B548ZZA Ultrasonography of Superior Vena Cava, Guidance (ICD-10-PCS; 2019-05-05)
PROC: 5A1935Z Respiratory Ventilation, Less than 24 Consecutive Hours (ICD-10-PCS; 2019-05-05)
PROC: 0BH17EZ Insertion of Endotracheal Airway into Trachea, Via Natural or Artificial Opening (ICD-10-PCS; 2019-05-05)
PROC: 0W9H00Z Drainage of Retroperitoneum with Drainage Device, Open Approach (ICD-10-PCS; principal; 2019-05-05 19:30)
DX: A41.9 Sepsis, unspecified organism (principal); R65.21 Severe sepsis with septic shock; K85.00 Idiopathic acute pancreatitis without necrosis or infection; N17.0 Acute kidney failure with tubular necrosis; K66.1 Hemoperitoneum; D68.59 Other primary thrombophilia; I48.20 Chronic atrial fibrillation, unspecified; K44.0 Diaphragmatic hernia with obstruction, without gangrene; Z99.11 Dependence on respirator [ventilator] status; K86.89 Other specified diseases of pancreas; Z88.8 Allergy status to other drugs, medicaments and biological substances; I48.91 Unspecified atrial fibrillation; D53.9 Nutritional anemia, unspecified; D75.89 Other specified diseases of blood and blood-forming organs; Z83.3 Family history of diabetes mellitus; Z82.49 Family history of ischemic heart disease and other diseases of the circulatory system; Z80.41 Family history of malignant neoplasm of ovary; F32.9 Major depressive disorder, single episode, unspecified; I11.9 Hypertensive heart disease without heart failure; K31.89 Other diseases of stomach and duodenum; K52.9 Noninfective gastroenteritis and colitis, unspecified; L25.9 Unspecified contact dermatitis, unspecified cause; Z79.01 Long term (current) use of anticoagulants; Z86.73 Personal history of transient ischemic attack (TIA), and cerebral infarction without residual deficits; Z90.49 Acquired absence of other specified parts of digestive tract; Z79.899 Other long term (current) drug therapy
CPT/HCPCS: 36415; 36600; 71045; 74177; 80048; 80053; 81003; 82330; 82533; 82607; 82803; 82947; 83605; 83690; 83735; 84100; 84132; 84295; 84443; 84478; 84484; 85014; 85025; 85610; 85730; 87040; 87070; 87081; 87205; 87324; 89055; 93005; 93308; 94002; 94003; 94640; 96361; 96374; 96375; 96376; C1729; G0378; J0690; J1100; J1170; J1885; J2250; J2405; J2543; J2704; J2710; J3010; J7620; Q0162; Q9967; C9113; J0330; J1940; J2370; J3475; J7030; J7040; J7050

== ENCOUNTER → 2019-10-03 | Outpatient (CLI) | payer MEDICARE ==
[~2019-10-03] MED LIST changes: +APIX5TAB PO; +ATEN25TA PO; +DILT240C47 PO; -DILT240C9 PO; +DIPH1TAB PO; +DIPH1TAB6 PO; +LIPA1CAP61 PO; +OXYC-302 PO; +OXYcodone/APAP 5/325MG PO; +REGADENOSON 0.4 MG/5 ML SYRINGE ONE; +TRIA15CR61 TP
== END | disposition home or self-care (01) ==
LOC: CFH 12:42
PROVIDERS: ATTEND Internal Medicine Cardiovascular Disease
DX: R06.02 Shortness of breath (principal); I10 Essential (primary) hypertension
CPT/HCPCS: 78452; 93017; A9502; J2785

== ENCOUNTER → 2019-10-28 | Day surgery (SDC) | payer MEDICARE ==
[~2019-10-28] VITALS: Ht 160 cm; Wt 67.0 kg
[~2019-10-28] MED LIST changes: +ACET650S21 PO; +CARV12.5 PO; +DEXT118L3 PO; +HYDR-3246 PO; -HYDR-36 PO; +PROPOFOL 10 MG/ML, 20ML ONE; -REGADENOSON 0.4 MG/5 ML SYRINGE ONE; +SODIUM CHLORIDE 0.9% 500 ML IV PRN
[2019-10-28 12:41] VITALS: BP 159/98
[2019-10-28 13:07] LABS: MEAN CORPUSCULAR HEMOGLOBIN 33.5 pg (27.0-34.8); MEAN CORPUSCULAR HGB CONC 33.3 g/dL (32.4-35.8); MEAN CORPUSCULAR VOLUME 100.6 fL (80-100); PLATELET COUNT 208 x10^3/uL (130-400); RED BLOOD COUNT 4.16 x10^6/uL (3.82-5.3); RED CELL DISTRIBUTION WIDTH 14.9 % (9.6-15.2)
[2019-10-28 13:18] LABS: ANION GAP 6 mmol/L (5-15); CHLORIDE 110 mmol/L (98-107); CREATININE 1.04 mg/dL (0.55-1.02)
[2019-10-28 13:20] LABS: BASOPHILS % (AUTO) 0 % (0-1); EOSINOPHILS # (AUTO) 0.52 x10^3/uL (0-0.4); EOSINOPHILS % (AUTO) 9 % (1-7); LYMPHOCYTES # (AUTO) 1.25 x10^3/uL (1-3.4); LYMPHOCYTES % (AUTO) 21 % (22-44); MD SCAN; MONOCYTES # (AUTO) 0.34 x10^3/uL (0.2-0.8); MONOCYTES % (AUTO) 6 % (2-9); NEUTROPHILS # (AUTO) 3.92 x10^3/uL (1.8-6.8); NEUTROPHILS % (AUTO) 65 % (42-75)
== END | disposition home or self-care (01) ==
LOC: CACL 12:41 → EDSTATUS 13:00
PROVIDERS: ATTEND Internal Medicine Cardiovascular Disease
DX: I48.91 Unspecified atrial fibrillation (principal); I10 Essential (primary) hypertension; E78.5 Hyperlipidemia, unspecified; Z79.01 Long term (current) use of anticoagulants; Z79.899 Other long term (current) drug therapy; Z88.2 Allergy status to sulfonamides; Z88.8 Allergy status to other drugs, medicaments and biological substances
CPT/HCPCS: 36415; 80048; 85025; 92960; J2704

== ENCOUNTER 2020-02-29 10:16 | Day surgery (SDC) | payer MEDICARE ==
[~2020-02-29] VITALS: Ht 160 cm; Wt 64.1 kg
[~2020-02-29 10:16] MED LIST changes: -PANT40TA5 PO; +PANT40TA6 PO; -SODIUM CHLORIDE 0.9% 500 ML IV PRN
[2020-02-29 10:41] VITALS: BP 147/98
[2020-02-29 11:09] LABS: BASOPHILS # (AUTO) 0.01 x10^3/uL (0-0.1); BASOPHILS % (AUTO) 0 % (0-1); EOSINOPHILS # (AUTO) 0.17 x10^3/uL (0-0.4); EOSINOPHILS % (AUTO) 3 % (1-7); LYMPHOCYTES % (AUTO) 18 % (22-44); MD NO; MEAN CORPUSCULAR HEMOGLOBIN 33.3 pg (27.0-34.8); MEAN CORPUSCULAR HGB CONC 32.6 g/dL (32.4-35.8); MEAN PLATELET VOLUME 8.1 fL (7.4-10.4); MONOCYTES # (AUTO) 0.47 x10^3/uL (0.2-0.8); MONOCYTES % (AUTO) 8 % (2-9); NEUTROPHILS # (AUTO) 4.39 x10^3/uL (1.8-6.8); NEUTROPHILS % (AUTO) 72 % (42-75); PLATELET COUNT 187 x10^3/uL (130-400); RED BLOOD COUNT 4.27 x10^6/uL (3.82-5.3); RED CELL DISTRIBUTION WIDTH 14.9 % (9.6-15.2)
[2020-02-29 11:18] LABS: ALANINE AMINOTRANSFERASE 17 U/L (12-78); ALBUMIN 3.7 g/dL (3.4-5.0); ANION GAP 5 mmol/L (5-15); CALCIUM 9.1 mg/dL (8.5-10.1); CHLORIDE 109 mmol/L (98-107); CREATININE 1.11 mg/dL (0.55-1.02)
[2020-02-29 11:28] LABS: ALKALINE PHOSPHATASE 62 U/L (45-117); BILIRUBIN,TOTAL 0.4 mg/dL (0.2-1.0); TOTAL PROTEIN 7.6 g/dL (6.4-8.2)
== END 2020-02-29 13:05 | disposition home or self-care (01) ==
LOC: CACL 10:16
PROVIDERS: ATTEND Internal Medicine Clinical Cardiac Electrophysiology
DX: I48.19 Other persistent atrial fibrillation (principal); I11.0 Hypertensive heart disease with heart failure; I50.9 Heart failure, unspecified; E78.5 Hyperlipidemia, unspecified; F32.9 Major depressive disorder, single episode, unspecified; Z88.8 Allergy status to other drugs, medicaments and biological substances; Z79.01 Long term (current) use of anticoagulants; Z79.899 Other long term (current) drug therapy; Z86.73 Personal history of transient ischemic attack (TIA), and cerebral infarction without residual deficits; Z82.49 Family history of ischemic heart disease and other diseases of the circulatory system; Z83.3 Family history of diabetes mellitus
CPT/HCPCS: 36415; 80053; 84443; 85025; 92960; 93005; J2704

== ENCOUNTER → 2020-05-07 | Outpatient (CLI) | payer MEDICARE ==
[~2020-05-07] MED LIST changes: +DILT-88 PO; -DILT240C47 PO; +OMNIPAQUE 350 MG/ML, 150 ML BOTTLE ONE; -PROPOFOL 10 MG/ML, 20ML ONE; +Tylenol Arthritis PO
== END | disposition home or self-care (01) ==
LOC: CFH 12:00
PROVIDERS: ATTEND Internal Medicine Clinical Cardiac Electrophysiology
DX: I48.19 Other persistent atrial fibrillation (principal); I48.91 Unspecified atrial fibrillation; I10 Essential (primary) hypertension; R06.02 Shortness of breath; G45.9 Transient cerebral ischemic attack, unspecified; K21.9 Gastro-esophageal reflux disease without esophagitis
CPT/HCPCS: 75572; 82565; Q9967

== ENCOUNTER 2020-05-10 05:53 | Observation (INO) | payer MEDICARE ==
[~2020-05-10] VITALS: Ht 160 cm; Wt 63.6 kg
[~2020-05-10 05:53] MED LIST changes: -OMNIPAQUE 350 MG/ML, 150 ML BOTTLE ONE; -Tylenol Arthritis PO
[2020-05-10] MEDS ORDERED: SODIUM CHLORIDE 0.9% 1,000 ML IV SCH (06:30)
[2020-05-10] MEDS ORDERED: SODIUM CHLORIDE 0.9% 1,000 ML IV ONE (06:30)
[2020-05-10] MEDS ORDERED: Tylenol Arthritis PO (06:31)
[2020-05-10 06:36] VITALS: BP 140/104
[2020-05-10] MEDS ORDERED: SUGAMMADEX 200 MG/2 ML IVPush ONE (09:56)
[2020-05-10] MEDS ORDERED: HEPARIN 5,000 UNITS/ML*10ML ONE (09:56)
[2020-05-10] MEDS ORDERED: ONDANSETRON 2MG/ML, 2ML ONE (09:56)
[2020-05-10] MEDS ORDERED: DEXAMETHASONE 4 MG/ML, 1ML ONE (09:56)
[2020-05-10] MEDS ORDERED: PHENYLEPHRINE 10 MG/ML ONE (09:56)
[2020-05-10] MEDS ORDERED: SUCCINYLCHOLINE 20 MG/ML, 10ML ONE (09:56)
[2020-05-10] MEDS ORDERED: ROCURONIUM 10MG/ML,5ML ONE (09:56)
[2020-05-10] MEDS ORDERED: PROPOFOL 10 MG/ML, 20ML ONE (09:56)
[2020-05-10] MEDS ORDERED: FENTANYL PF 100 MCG/2ML IV PRN (10:00)
[2020-05-10] MEDS ORDERED: PROMETHAZINE 25 MG/ML, 1ML IVPush PRN (10:00)
[2020-05-10] MEDS ORDERED: hydrALAzine 20 MG/ML, 1ML IV PRN (10:00)
[2020-05-10] MEDS ORDERED: ONDANSETRON 2MG/ML, 2ML IVPush PRN (10:00)
[2020-05-10] MEDS ORDERED: LABETALOL 5MG/ML, 20ML IV PRN (10:00)
[2020-05-10] MEDS ORDERED: OXYcodone 5 MG/5 ML ORAL.SOL UDC PO PRN (10:00)
[2020-05-10] MEDS ORDERED: EPHEDRINE 50 MG/ML, 1ML IVPush PRN (10:00)
[2020-05-10] MEDS ORDERED: HYDROmorphone 1 MG/ML, 1ML INJ IVPush PRN (10:00)
[2020-05-10] MEDS ORDERED: MEPERIDINE/PF 25MG/0.5ML IVPush PRN (10:00)
[2020-05-10] MEDS ORDERED: ACETAMINOPHEN 325 MG TABLET PO PRN (10:00)
[2020-05-10] MEDS ORDERED: RIVAROXABAN 20 MG TABLET ONE (10:02)
[2020-05-10] MEDS ORDERED: LIDOCAINE-MPF 2%, 2ML ONE (10:02)
[2020-05-10] MEDS ORDERED: APIXABAN 5 MG TABLET ONE (10:36)
[2020-05-10] MEDS ORDERED: APIXABAN 5 MG TABLET PO ONE (15:00)
[2020-05-10 16:33] VITALS: BP 120/76
[2020-05-10 17:17] VITALS: BP 125/76
[2020-05-10 18:49] VITALS: BP 121/78
[2020-05-10] MEDS: APIXABAN 5 MG TABLET PO SCH (20:35)
[2020-05-10] MEDS: COLCHICINE 0.6 MG CAPSULE PO SCH (20:35)
[2020-05-11 01:06] VITALS: BP 122/72
[2020-05-11] MEDS ORDERED: ACETAMINOPHEN 325 MG TABLET PO PRN (03:00)
[2020-05-11] MEDS ORDERED: DEXTROMETHORPHAN 30 MG/5 ML ORAL SOL PO ONE (03:00)
[2020-05-11] MEDS ORDERED: PANTOPRAZOLE 40MG TABLET PO SCH (06:00)
[2020-05-11 07:05] VITALS: BP 148/92
[2020-05-11] MEDS ORDERED: LISINOPRIL 40 MG TABLET PO SCH (09:00)
[2020-05-11] MEDS ORDERED: AMIODARONE 200 MG TABLET PO SCH (09:00)
[2020-05-11] MEDS ORDERED: SERTRALINE 100MG TABLET PO SCH (09:00)
[2020-05-11] MEDS ORDERED: AMIO200T42 PO (09:56)
[2020-05-11] MEDS ORDERED: COLC0.6C3 PO (09:56)
[2020-05-11] MEDS: COLCHICINE 0.6 MG CAPSULE PO SCH (10:10)
[2020-05-11] MEDS: APIXABAN 5 MG TABLET PO SCH (10:10)
[2020-05-11 13:56] VITALS: BP 149/94
== END 2020-05-11 14:15 | disposition home or self-care (01) ==
LOC: CACL 05:53 → 5SO 14:36 → CACL 16:25
PROVIDERS: ADMIT Internal Medicine Clinical Cardiac Electrophysiology; ATTEND Internal Medicine Clinical Cardiac Electrophysiology
DX: I48.19 Other persistent atrial fibrillation (principal); Z20.828 Contact with and (suspected) exposure to other viral communicable diseases; K21.9 Gastro-esophageal reflux disease without esophagitis; I10 Essential (primary) hypertension; Z79.899 Other long term (current) drug therapy
CPT/HCPCS: 71046; 85347; 87635; 93005; 93308; 93312; 93321; 93325; 93613; 93655; 93656; 93657; 93662; C1730; C1732; C1759; C1766; C1769; C1893; C1894; G0378; J0330; J1100; J1644; J2370; J2405; J2704; J3010; J3490; 93653